=== PATIENT | male | born 1935 | race Caucasian/White ===

== ENCOUNTER 2017-11-01 11:32 | Observation (INO) | payer MEDICAID, MEDICARE ==
[2017-11-01 11:52] VITALS: BMI 23.0
--- NOTE | 2017-11-01 12:22 | ED PDOC ---
HPI: Chest Pain Time Seen by Provider: 11/01/17 12:13 Chief Complaint (Nursing): Chest Pain History Per: EMS, Other (penitentiary document) Onset/Duration Of Symptoms: Unknown Current Symptoms Are (Timing): Better Additional Complaint(s): Brought by EMS from [facility] – [place], [place] home for chest pain, unknown duration. Pt unable to describe pain but states that he feels better now. Past Medical History Vital Signs: Last Vital Signs Temp 97.9 F 11/01/17 11:49 Pulse 84 11/01/17 11:49 Resp 17 11/01/17 11:49 BP 132/80 11/01/17 11:49 Pulse Ox 100 11/01/17 12:22 - Medical History PMH: Arthritis, CAD, HTN, Hypercholesterolemia Denies: Chronic Kidney Disease - Surgical History Surgical History: Pacemaker (left upper chest) - Family History Family History: States: Unknown Family Hx - Home Medications Home Medications: Ambulatory Orders Medication Instructions Recorded Atorvastatin [Lipitor] 20 mg PO DAILY #0 tab 05/04/14 Isosorbide Mononitrate [Imdur ER] 30 mg PO DAILY #30 ter 05/04/14 Metoprolol Tartrate [Lopressor] 25 mg PO Q12 #0 tab 05/04/14 Pantoprazole [Protonix EC Tab] 20 mg PO DAILY #0 ect 05/04/14 Valsartan [Diovan] 80 mg PO DAILY #0 tab 05/04/14 Acetaminophen [Tylenol] 650 mg PO Q4 PRN 06/11/14 Nitroglycerin [Nitroglycerin] 0.4 mg SL PRN PRN 06/11/14 - Allergies Allergies/Adverse Reactions: Allergies Allergy/AdvReac Type Severity Reaction Status Date / Time No Known Allergies Allergy Verified 06/11/14 16:28 Review of Systems ROS Statement: Except As Marked, All Systems Reviewed And Found Negative Cardiovascular: Positive for: Chest Pain. Negative for: Palpitations Respiratory: Negative for: Shortness of Breath Physical Exam - Reviewed Nursing Documentation Reviewed: Yes Vital Signs Reviewed: Yes - Physical Exam Appears: Positive for: Non-toxic, No Acute Distress Head Exam: Positive for: ATRAUMATIC, NORMAL INSPECTION, NORMOCEPHALIC Skin: Positive for: Normal Color, Warm, DRY Eye Exam: Positive for: EOMI, Normal appearance, PERRL ENT: Positive for: Normal ENT Inspection Neck: Positive for: Normal, Painless ROM Cardiovascular/Chest: Positive for: Regular Rate, Rhythm Respiratory: Positive for: CNT, Normal Breath Sounds Gastrointestinal/Abdominal: Positive for: Normal Exam, Soft Back: Positive for: Normal Inspection Extremity: Positive for: Normal ROM Neurologic/Psych: Positive for: Alert, Oriented - Laboratory Results Result Diagrams: 11/01/17 12:50 11/01/17 12:50 - ECG O2 Sat by Pulse Oximetry: 100 Disposition - Clinical Impression Clinical Impression: Chest pain - Patient ED Disposition Is Patient to be Admitted: Yes - Disposition Disposition Time: 13:35 Condition: FAIR Forms: [facility] ([place]) - Pt Status Changed To: Hospital Disposition Of: Observation - POA Present On Arrival: None
[2017-11-01 13:12] LABS: BASO % 0.6 % (0.0-2.0); EOS # 0.3 K/uL (0.0-0.7); EOS % 3.7 % (0.0-4.0); HEMOGLOBIN 14.3 g/dL (12.0-18.0); LYMPH # 1.6 K/uL (1.0-4.3); LYMPH % 22.9 % (20.0-40.0); MEAN CELL VOLUME 94.7 fl (80.0-94.0); MEAN CORPUSCULAR HEMOGLOBIN 31.8 pg (27.0-31.0); MEAN CORPUSCULAR HGB CONC 33.5 g/dL (33.0-37.0); MEAN PLATELET VOLUME 8.5 fl (7.2-11.7); MONO # 0.6 K/uL (0.0-0.8); NEUT # 4.5 K/uL (1.8-7.0); NEUT % 63.8 % (50.0-75.0); NRBC % 0.1 % (0.0-0.0); RBC 4.5 Mil/uL (4.40-5.90); RED CELL DISTRIBUTION WIDTH 12.8 % (11.5-14.5); WHITE BLOOD COUNT 7.1 K/uL (4.8-10.8)
[2017-11-01 13:25] LABS: ALBUMIN 3.5 g/dL (3.5-5.0); ALT/SGPT 22 U/L (21-72); AST/SGOT 27 U/L (17-59); BLOOD UREA NITROGEN 12 mg/dl (9-20); CALCIUM 9.3 mg/dL (8.4-10.2); GFR AFRICAN-AMERICAN > 60; GFR NON-AFRICAN AMERICAN > 60
--- NOTE | 2017-11-01 13:42 | RAD ---
Date of service: 11/01/2017 HISTORY: cough COMPARISON: Chest radiograph dated 05/06/2014. FINDINGS: LUNGS: No active pulmonary disease. Left midlung scarring. PLEURA: No significant pleural effusion identified, no pneumothorax apparent. CARDIOVASCULAR: Left subclavian access pacemaker redemonstrated. Prior sternotomy with sternal wires and surgical clips in place. Atherosclerotic aortic calcifications. Cardiomediastinal silhouette stably enlarged. OSSEOUS STRUCTURES: Unchanged. VISUALIZED UPPER ABDOMEN: Normal. OTHER FINDINGS: None. IMPRESSION: No active disease.
[2017-11-02 07:23] LABS: HEMOGLOBIN 14.8 g/dL (12.0-18.0); MEAN CELL VOLUME 94.8 fl (80.0-94.0); MEAN CORPUSCULAR HEMOGLOBIN 31.9 pg (27.0-31.0); MEAN CORPUSCULAR HGB CONC 33.6 g/dL (33.0-37.0); RBC 4.64 Mil/uL (4.40-5.90); RED CELL DISTRIBUTION WIDTH 12.9 % (11.5-14.5); WHITE BLOOD COUNT 6.5 K/uL (4.8-10.8)
--- NOTE | 2017-11-02 07:47 | CP.PCM.HP ---
History of Present Illness - History of Present Illness History of Present Illness: This is an 82 y/o male admitted for chest pain. Patient was sent from Shelter apparently for complaint of chets pain which he described as sudden forceful chest pain. Apparently he had his defibrillator discharged. Medical Hx defibrillator HTN BOH Present on Admission - Present on Admission Any Indicators Present on Admission: No History of DVT/PE: No History of Uncontrolled Diabetes: No Urinary Catheter: No Decubitus Ulcer Present: No Past Patient History - Past Medical History & Family History Past Medical History?: Yes - Past Social History Smoking Status: Never Smoked - CARDIAC Hx Cardiac Disorders: Yes Hx Hypercholesterolemia: Yes Hx Hypertension: Yes Hx Pacemaker: Yes - PULMONARY Hx Respiratory Disorders: No - NEUROLOGICAL Hx Neurological Disorder: Yes HX Cerebrovascular Accident: Yes - HEENT Hx HEENT Problems: No - RENAL Hx Chronic Kidney Disease: No - ENDOCRINE/METABOLIC Hx Endocrine Disorders: No - HEMATOLOGICAL/ONCOLOGICAL Hx Blood Disorders: No - INTEGUMENTARY Hx Dermatological Problems: No - MUSCULOSKELETAL/RHEUMATOLOGICAL Hx Arthritis: Yes Hx Falls: Yes - GASTROINTESTINAL Hx Gastrointestinal Disorders: No - GENITOURINARY/GYNECOLOGICAL Hx Genitourinary Disorders: Yes Hx Prostate Problems: Yes - PSYCHIATRIC Hx Substance Use: No - SURGICAL HISTORY Hx Surgeries: Yes Hx Coronary Artery Bypass Graft: Yes (2008) - ANESTHESIA Hx Anesthesia: Yes Hx Anesthesia Reactions: No Hx Malignant Hyperthermia: No Meds Allergies/Adverse Reactions: Allergies Allergy/AdvReac Type Severity Reaction Status Date / Time No Known Allergies Allergy Verified 06/11/14 16:28 Physical Exam - Eye Exam Eye Exam: Normal appearance - ENT Exam ENT Exam: Mucous Membranes Moist - Respiratory Exam Respiratory Exam: Clear to Auscultation Bilateral - Cardiovascular Exam Cardiovascular Exam: REGULAR RHYTHM - GI/Abdominal Exam GI & Abdominal Exam: Normal Bowel Sounds Results - Vital Signs Recent Vital Signs: Last Vital Signs Temp 97.8 F 11/02/17 05:00 Pulse 80 11/02/17 05:00 Resp 18 11/02/17 05:00 BP 105/72 11/02/17 05:00 Pulse Ox 96 11/02/17 05:00 - Labs Result Diagrams: 11/02/17 06:30 11/02/17 06:30 Labs: Laboratory Results - last 24 hr 11/01/17 11/01/17 11/01/17 12:50 12:50 21:10 WBC 7.1 RBC 4.50 Hgb 14.3 Hct 42.7 MCV 94.7 H MCH 31.8 H MCHC 33.5 RDW 12.8 Plt Count 189 MPV 8.5 Neut % (Auto) 63.8 Lymph % (Auto) 22.9 [place] % (Auto) 9.0 Eos % (Auto) 3.7 Baso % (Auto) 0.6 Neut # (Auto) 4.5 Lymph # (Auto) 1.6 [place] # (Auto) 0.6 Eos # (Auto) 0.3 Baso # (Auto) 0.0 Sodium 139 Potassium 4.3 Chloride 104 Carbon Dioxide 26 Anion Gap 13 BUN 12 Creatinine 0.6 L Est GFR ( Amer) > 60 Est GFR (Non-Af Amer) > 60 Random Glucose 100 Calcium 9.3 Total Bilirubin 1.1 AST 27 ALT 22 Alkaline Phosphatase 90 Troponin I < 0.0120 < 0.0120 Total Protein 7.1 Albumin 3.5 Globulin 3.6 Albumin/Globulin Ratio 1.0 11/02/17 06:30 WBC 6.5 RBC 4.64 Hgb 14.8 Hct 44.0 MCV 94.8 H MCH 31.9 H MCHC 33.6 RDW 12.9 Plt Count 187 MPV Neut % (Auto) Lymph % (Auto) [place] % (Auto) Eos % (Auto) Baso % (Auto) Neut # (Auto) Lymph # (Auto) [place] # (Auto) Eos # (Auto) Baso # (Auto) Sodium Potassium Chloride Carbon Dioxide Anion Gap BUN Creatinine Est GFR ( Amer) Est GFR (Non-Af Amer) Random Glucose Calcium Total Bilirubin AST ALT Alkaline Phosphatase Troponin I Total Protein Albumin Globulin Albumin/Globulin Ratio Assessment & Plan (1) Chest pain Status: Acute (2) Hypertension Status: Acute (3) BPH associated with nocturia Status: Acute (4) BPH (benign prostatic hyperplasia) Status: Acute - Assessment and Plan (Free Text) Plan: cardiology eval troponin telemetry cont meds ECHO
--- NOTE | 2017-11-02 07:48 | CP.PCM.PN ---
Subjective - Date & Time of Evaluation Date of Evaluation: 11/02/17 Time of Evaluation: 08:20 - Subjective Subjective: Patient feels a lot better. Still with occasional pain Has no SOB, Has good sleep and appetite. Objective - Vital Signs/Intake and Output Vital Signs (last 24 hours): Temp Pulse Resp BP Pulse Ox 97.8 F 80 18 105/72 96 11/02/17 05:00 11/02/17 05:00 11/02/17 05:00 11/02/17 05:00 11/02/17 05:00 Intake and Output: 11/02/17 11/02/17 06:59 18:59 Intake Total 200 Output Total 300 Balance -100 - Medications Medications: Current Medications Acetaminophen (Tylenol 325mg Tab) 650 mg PO Q4 PRN PRN Reason: Fever >100.4 F Aspirin (Aspirin Chewable) 81 mg PO DAILY [facility] Famotidine (Pepcid) 20 mg PO HS [facility] Last Admin: 11/01/17 22:38 Dose: 20 mg Metoprolol Tartrate (Lopressor) 25 mg PO Q12 [facility] Last Admin: 11/01/17 21:22 Dose: 25 mg Multivitamins/Minerals (Therapeutic-M Tab) 1 tab PO DAILY [facility] Tamsulosin HCl (Flomax) 0.4 mg PO DAILY [facility] - Labs Labs: 11/02/17 06:30 11/01/17 12:50 - Head Exam Head Exam: NORMAL INSPECTION - Eye Exam Eye Exam: Normal appearance - ENT Exam ENT Exam: Mucous Membranes Moist - Respiratory Exam Respiratory Exam: Clear to Ausculation Bilateral - Cardiovascular Exam Cardiovascular Exam: Irregular Rhythm - GI/Abdominal Exam GI & Abdominal Exam: Normal Bowel Sounds - Extremities Exam Extremities Exam: Full ROM - Neurological Exam Neurological Exam: CN II-XII Intact Assessment and Plan (1) Chest pain Status: Acute (2) BPH (benign prostatic hyperplasia) Status: Acute (3) Hypertension Status: Acute (4) Confusion Status: Acute (5) Gait abnormality Status: Acute - Assessment and Plan (Free Text) Plan: Cont meds Con ttx Cont pain meds ECHO Phys therapy
[2017-11-02 07:50] LABS: ALBUMIN 3.6 g/dL (3.5-5.0); ALT/SGPT 19 U/L (21-72); AST/SGOT 21 U/L (17-59); BLOOD UREA NITROGEN 9 mg/dl (9-20); CALCIUM 9.5 mg/dL (8.4-10.2); GFR AFRICAN-AMERICAN > 60; GFR NON-AFRICAN AMERICAN > 60
[2017-11-02] MEDS ORDERED: Patient's Own Med (Multivitamin [Multivitamins] 1 TAB) PO SCH (09:00)
[2017-11-02] MEDS: Multivitamin With Minerals Tab PO SCH (09:24)
--- NOTE | 2017-11-02 12:14 | CP.PCM.CON ---
Past Patient History - Past Medical History & Family History Past Medical History?: Yes - Past Social History Smoking Status: Never Smoked - CARDIAC Hx Cardiac Disorders: Yes Hx Hypercholesterolemia: Yes Hx Hypertension: Yes Hx Pacemaker: Yes - PULMONARY Hx Respiratory Disorders: No - NEUROLOGICAL Hx Neurological Disorder: Yes HX Cerebrovascular Accident: Yes - HEENT Hx HEENT Problems: No - RENAL Hx Chronic Kidney Disease: No - ENDOCRINE/METABOLIC Hx Endocrine Disorders: No - HEMATOLOGICAL/ONCOLOGICAL Hx Blood Disorders: No - INTEGUMENTARY Hx Dermatological Problems: No - MUSCULOSKELETAL/RHEUMATOLOGICAL Hx Arthritis: Yes Hx Falls: Yes - GASTROINTESTINAL Hx Gastrointestinal Disorders: No - GENITOURINARY/GYNECOLOGICAL Hx Genitourinary Disorders: Yes Hx Prostate Problems: Yes - PSYCHIATRIC Hx Substance Use: No - SURGICAL HISTORY Hx Surgeries: Yes Hx Coronary Artery Bypass Graft: Yes (2008) - ANESTHESIA Hx Anesthesia: Yes Hx Anesthesia Reactions: No Hx Malignant Hyperthermia: No Meds Allergies/Adverse Reactions: Allergies Allergy/AdvReac Type Severity Reaction Status Date / Time No Known Allergies Allergy Verified 06/11/14 16:28 - Medications Medications: Current Medications Acetaminophen (Tylenol 325mg Tab) 650 mg PO Q4 PRN PRN Reason: Fever >100.4 F Aspirin (Aspirin Chewable) 81 mg PO DAILY [facility] Last Admin: 11/02/17 09:24 Dose: 81 mg Famotidine (Pepcid) 20 mg PO HS [facility] Last Admin: 11/01/17 22:38 Dose: 20 mg Metoprolol Tartrate (Lopressor) 25 mg PO Q12 [facility] Last Admin: 11/02/17 09:24 Dose: 25 mg Multivitamins/Minerals (Therapeutic-M Tab) 1 tab PO DAILY [facility] Last Admin: 11/02/17 09:24 Dose: 1 tab Tamsulosin HCl (Flomax) 0.4 mg PO DAILY [facility] Last Admin: 11/02/17 10:59 Dose: 0.4 mg Results - Vital Signs Recent Vital Signs: Last Vital Signs Temp 97.4 F L 11/02/17 11:57 Pulse 80 11/02/17 11:57 Resp 18 11/02/17 11:57 BP 115/74 11/02/17 11:57 Pulse Ox 98 11/02/17 11:57 - Labs Result Diagrams: 11/02/17 06:30 11/02/17 06:30 Labs: Laboratory Results - last 24 hr 07/11/01/17 11/01/17 12:50 12:50 21:10 WBC 7.1 RBC 4.50 Hgb 14.3 Hct 42.7 MCV 94.7 H MCH 31.8 H MCHC 33.5 RDW 12.8 Plt Count 189 MPV 8.5 Neut % (Auto) 63.8 Lymph % (Auto) 22.9 [place] % (Auto) 9.0 Eos % (Auto) 3.7 Baso % (Auto) 0.6 Neut # (Auto) 4.5 Lymph # (Auto) 1.6 [place] # (Auto) 0.6 Eos # (Auto) 0.3 Baso # (Auto) 0.0 Sodium 139 Potassium 4.3 Chloride 104 Carbon Dioxide 26 Anion Gap 13 BUN 12 Creatinine 0.6 L Est GFR ( Amer) > 60 Est GFR (Non-Af Amer) > 60 Random Glucose 100 Calcium 9.3 Total Bilirubin 1.1 AST 27 ALT 22 Alkaline Phosphatase 90 Troponin I < 0.0120 < 0.0120 Total Protein 7.1 Albumin 3.5 Globulin 3.6 Albumin/Globulin Ratio 1.0 11/02/17 11/02/17 06:30 06:30 WBC 6.5 RBC 4.64 Hgb 14.8 Hct 44.0 MCV 94.8 H MCH 31.9 H MCHC 33.6 RDW 12.9 Plt Count 187 MPV Neut % (Auto) Lymph % (Auto) [place] % (Auto) Eos % (Auto) Baso % (Auto) Neut # (Auto) Lymph # (Auto) [place] # (Auto) Eos # (Auto) Baso # (Auto) Sodium 142 Potassium 4.3 Chloride 106 Carbon Dioxide 29 Anion Gap 11 BUN 9 Creatinine 0.7 L Est GFR ( Amer) > 60 Est GFR (Non-Af Amer) > 60 Random Glucose 83 Calcium 9.5 Total Bilirubin 1.6 H AST 21 ALT 19 L Alkaline Phosphatase 107 Troponin I < 0.0120 Total Protein 7.1 Albumin 3.6 Globulin 3.5 Albumin/Globulin Ratio 1.0
[2017-11-03] MEDS: Multivitamin With Minerals Tab PO SCH (08:22)
--- NOTE | 2017-11-03 16:40 | CP.PCM.PN ---
Subjective - Date & Time of Evaluation Date of Evaluation: 11/03/17 Time of Evaluation: 10:10 - Subjective Subjective: Patient remains stable Has no chest pain or SOB afebrile. Objective - Vital Signs/Intake and Output Vital Signs (last 24 hours): Temp Pulse Resp BP Pulse Ox 97.4 F L 80 18 135/87 96 11/03/17 15:40 11/03/17 15:40 11/03/17 15:40 11/03/17 15:40 11/03/17 15:40 Intake and Output: 11/03/17 11/03/17 06:59 18:59 Output Total 200 Balance -200 - Medications Medications: Current Medications Acetaminophen (Tylenol 325mg Tab) 650 mg PO Q4 PRN PRN Reason: Fever >100.4 F Aspirin (Aspirin Chewable) 81 mg PO DAILY [facility] Last Admin: 11/03/17 08:22 Dose: 81 mg Famotidine (Pepcid) 20 mg PO HS [facility] Last Admin: 11/02/17 21:42 Dose: 20 mg Metoprolol Tartrate (Lopressor) 25 mg PO Q12 [facility] Last Admin: 11/03/17 11:44 Dose: 25 mg Multivitamins/Minerals (Therapeutic-M Tab) 1 tab PO DAILY [facility] Last Admin: 11/03/17 08:22 Dose: 1 tab Tamsulosin HCl (Flomax) 0.4 mg PO DAILY [facility] Last Admin: 11/03/17 08:22 Dose: 0.4 mg - Labs Labs: 11/02/17 06:30 11/02/17 06:30 - Eye Exam Eye Exam: Normal appearance - Respiratory Exam Respiratory Exam: Clear to Ausculation Bilateral - Cardiovascular Exam Cardiovascular Exam: Irregular Rhythm - GI/Abdominal Exam GI & Abdominal Exam: Normal Bowel Sounds - Neurological Exam Neurological Exam: Altered, Awake, CN II-XII Intact Assessment and Plan (1) Chest pain Status: Acute (2) BPH (benign prostatic hyperplasia) Status: Acute (3) Hypertension Status: Acute (4) Confusion Status: Acute (5) Gait abnormality Status: Acute - Assessment and Plan (Free Text) Plan: Cont meds check ECHO in AM Phys therapy DC plans for am.
[2017-11-04 07:54] VITALS: PULSE 80
[2017-11-04] MEDS: Multivitamin With Minerals Tab PO SCH (09:41)
--- NOTE | 2017-11-04 11:08 | CP.PCM.DIS ---
Provider - Provider Date of Admission: 11/03/17 19:31 Attending physician: Cristian Montero MD Diagnosis - Discharge Diagnosis (1) Chest pain Status: Acute (2) BPH (benign prostatic hyperplasia) Status: Acute (3) Hypertension Status: Acute (4) Confusion Status: Acute (5) Gait abnormality Status: Acute Hospital Course - Lab Results Lab Results: Most Recent Lab Values WBC 6.5 K/uL (4.8-10.8) 11/02/17 06:30 RBC 4.64 Mil/uL (4.40-5.90) 11/02/17 06:30 Hgb 14.8 g/dL (12.0-18.0) 11/02/17 06:30 Hct 44.0 % (35.0-51.0) 11/02/17 06:30 MCV 94.8 fl (80.0-94.0) H 11/02/17 06:30 MCH 31.9 pg (27.0-31.0) H 11/02/17 06:30 MCHC 33.6 g/dL (33.0-37.0) 11/02/17 06:30 RDW 12.9 % (11.5-14.5) 11/02/17 06:30 Plt Count 187 K/uL (130-400) 11/02/17 06:30 MPV 8.5 fl (7.2-11.7) 11/01/17 12:50 Neut % (Auto) 63.8 % (50.0-75.0) 11/01/17 12:50 Lymph % (Auto) 22.9 % (20.0-40.0) 11/01/17 12:50 [place] % (Auto) 9.0 % (0.0-10.0) 11/01/17 12:50 Eos % (Auto) 3.7 % (0.0-4.0) 11/01/17 12:50 Baso % (Auto) 0.6 % (0.0-2.0) 11/01/17 12:50 Neut # (Auto) 4.5 K/uL (1.8-7.0) 11/01/17 12:50 Lymph # (Auto) 1.6 K/uL (1.0-4.3) 11/01/17 12:50 [place] # (Auto) 0.6 K/uL (0.0-0.8) 11/01/17 12:50 Eos # (Auto) 0.3 K/uL (0.0-0.7) 11/01/17 12:50 Baso # (Auto) 0.0 K/uL (0.0-0.2) 11/01/17 12:50 Sodium 142 mmol/l (132-148) 11/02/17 06:30 Potassium 4.3 MMOL/L (3.6-5.0) 11/02/17 06:30 Chloride 106 mmol/L (98-107) 11/02/17 06:30 Carbon Dioxide 29 mmol/L (22-30) 11/02/17 06:30 Anion Gap 11 (10-20) 11/02/17 06:30 BUN 9 mg/dl (9-20) 11/02/17 06:30 Creatinine 0.7 mg/dl (0.8-1.5) L 11/02/17 06:30 Est GFR ( Amer) > 60 11/02/17 06:30 Est GFR (Non-Af Amer) > 60 11/02/17 06:30 Random Glucose 83 mg/dL (75-110) 11/02/17 06:30 Calcium 9.5 mg/dL (8.4-10.2) 11/02/17 06:30 Total Bilirubin 1.6 mg/dl (0.2-1.3) H 11/02/17 06:30 AST 21 U/L (17-59) 11/02/17 06:30 ALT 19 U/L (21-72) L 11/02/17 06:30 Alkaline Phosphatase 107 U/L (38-126) 11/02/17 06:30 Troponin I < 0.0120 ng/mL (0.00-0.120) 11/02/17 06:30 Total Protein 7.1 G/DL (6.3-8.2) 11/02/17 06:30 Albumin 3.6 g/dL (3.5-5.0) 11/02/17 06:30 Globulin 3.5 gm/dL (2.2-3.9) 11/02/17 06:30 Albumin/Globulin Ratio 1.0 (1.0-2.1) 11/02/17 06:30 - Hospital Course Hospital Course: This is an 82 y/o male admitted for chest pain. Discharge Exam - Head Exam Head Exam: NORMAL INSPECTION Discharge Plan - Follow Up Plan Condition: FAIR Disposition: HOME/ ROUTINE
--- NOTE | 2017-11-04 11:48 | CP.PCM.PCO ---
Assessment/Plan - Assessment and Plan (Free Text) Assessment: Patient seen and examined vss, chest pain free awake alert oriented to person Troponin -x3 Discussed with Dr Godinez, pt able to return to senior care with current medication regimen. Discussed with Dr Montero who agrees with plan.
--- NOTE | 2017-11-04 13:59 | CARD ---
APPROVED REPORT Date of service: 11/01/2017 EKG Measurement Heart [id number] <Conclusion> Ventricular-paced rhythm Abnormal ECG
[2017-11-04 15:59] VITALS: BP 110/65; RESP 16; TEMP 97.7; O2SAT 97
== END 2017-11-04 19:30 ==
LOC: H.ER 11:32 → H.ERHOLD 13:35 → H.TEL 21:52 → INTOOBSV 11-03 19:31 → OBSVTOIN 11-03 19:31
PROVIDERS: ADMIT Family Medicine; ATTEND Family Medicine
DX: R07.9 Chest pain, unspecified (principal); N40.1 Benign prostatic hyperplasia with lower urinary tract symptoms; Z86.73 Personal history of transient ischemic attack (TIA), and cerebral infarction without residual deficits; Z95.0 Presence of cardiac pacemaker; Z95.1 Presence of aortocoronary bypass graft; M19.90 Unspecified osteoarthritis, unspecified site; Z79.899 Other long term (current) drug therapy; R26.9 Unspecified abnormalities of gait and mobility; R35.1 Nocturia; E78.00 Pure hypercholesterolemia, unspecified; I10 Essential (primary) hypertension; I25.10 Atherosclerotic heart disease of native coronary artery without angina pectoris
CPT/HCPCS: 36415; 71045; 80053; 84484; 85025; 85027; 93005; 99285; G0378